=== PATIENT | female | born 1995 | race Caucasian/White ===

== ENCOUNTER 2019-07-12 13:10 | Emergency (ER) | payer OTHER ==
[~2019-07-12] VITALS: Ht 152.4 cm; Wt 61.7 kg
[~2019-07-12 13:10] MED LIST: CEFTIN250 MG PO; SYNTHROID88 MCG PO
[2019-07-12] MEDS ORDERED: CRYSELLE-28 TA1 EACH PO (13:40)
== END 2019-07-12 18:10 | disposition home or self-care (01) ==
LOC: ER 13:10
DX: K29.70 Gastritis, unspecified, without bleeding (principal); R10.13 Epigastric pain